=== PATIENT | male | born 1980 | race Caucasian/White ===

== ENCOUNTER 2021-04-22 15:20 | Emergency (ER) | payer OTHER | END 2021-04-22 18:19 | disposition home or self-care (01) | LOC: FER 15:20 | DX: S62.617A Displaced fracture of proximal phalanx of left little finger, initial encounter for closed fracture (principal); V86.96XA Unspecified occupant of dirt bike or motor/cross bike injured in nontraffic accident, initial encounter | CPT/HCPCS: 73140 ==